=== PATIENT | female | born 1955 | race Caucasian/White ===

== ENCOUNTER 2018-08-08 13:14 | Outpatient (CLI) | payer OTHER ==
--- NOTE | 2018-08-09 15:07 | MRI Report ---
Reason: PAIN IN LEFT KNEE Procedure Date: 08/08/2018 Accession Number: [id number] / [id number] Procedure: MRI - Knee LT W/O CPT Code: FULL RESULT: EXAM: LEFT KNEE MRI WITHOUT CONTRAST EXAM DATE: 08/08/2018 02:53 PM. CLINICAL HISTORY: PAIN IN LEFT KNEE. COMPARISON: None. TECHNIQUE: Multiplanar, multisequence T1-weighted and fluid-sensitive sequences of the knee without contrast. Other: None. FINDINGS: Ligaments: The anterior cruciate, posterior cruciate, medial collateral, and lateral collateral ligaments are intact and unremarkable. Patellofemoral compartment: There is diffuse chondromalacia of the retropatellar surface. This is full-thickness in most of the medial and central retropatellar surface but partial thickness elsewhere. Femoral trochlear cartilage is preserved. No patellofemoral osteoarthritis. Patellofemoral alignment is anatomic. The distal quadriceps and patellar tendons are normal. The medial and lateral patellofemoral retinacula are normal. Medial compartment: Partial discontinuity of the posterior horn root of the medial meniscus consistent with partial root tear. Mild intrasubstance degeneration in the posterior horn further medially but no further tear. Mild partial thickness chondromalacia of the weightbearing surface of the medial femoral condyle centrally to posteriorly. Medial tibial plateau cartilage is preserved. No significant medial compartment osteoarthritis. Lateral compartment: The lateral meniscus is intact. Lateral compartment cartilage is preserved. No lateral compartment osteoarthritis. Soft tissues: There is a small knee effusion. No popliteal cyst. IMPRESSION: 1. Partial tear of the posterior horn medial meniscal root. Mild medial femoral condylar chondromalacia but no medial compartment osteoarthritis. 2. Moderate chondromalacia patella, much of which is full-thickness in the central and lateral retropatellar surface. Femoral trochlear cartilage is preserved. No patellofemoral osteoarthritis. 3. Normal lateral compartment. 4. Intact ligaments. [facility]
== END 2018-08-08 13:15 | disposition home or self-care (01) ==
LOC: DI 13:14
PROVIDERS: ATTEND Internal Medicine
DX: S83.242A Other tear of medial meniscus, current injury, left knee, initial encounter (principal); M22.42 Chondromalacia patellae, left knee